=== PATIENT | female | born 2000 | race Caucasian/White ===

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

== ENCOUNTER 2020-10-28 04:01 | Inpatient (IN) ==
[2020-10-28] MEDS ORDERED: ONDANSETRON 4 MG/2 ML VIAL IV PRN (04:09)
[2020-10-28] MEDS ORDERED: MEPERIDINE 50 MG/1 ML VIAL IM PRN (04:09)
[2020-10-28] MEDS ORDERED: BUTORPHANOL 2 MG/ML VIAL IV PRN (04:09)
[2020-10-28 06:34] LABS: Basophils % 0.2 % (0.0-0.8); Eosinophils # 0.1 10*3/uL (0.0-0.87); Eosinophils % 1.1 % (0.00-10.9); Hematocrit 37.4 VOL% (35.7-47.0); Hemoglobin 12.4 GM/DL (12.0-16.0); Immature Granulocytes % 0.6 %; Immature Granulocytes Absolute 0.06 #; Lymphocytes # 2.6 10*3/uL (1.4-4.0); Lymphocytes % 27.6 % (21.3-54.2); Mean Corpuscular HGB Conc 33.2 GM/DL (32-36); Mean Corpuscular Volume 81.7 FL (87-102); Mean Platelet Volume 10.4 FL (9.6-12.0); Monocytes % 5.5 % (1.7-12.7); Platelet Count 186 T/CUMM (130-400); Red Blood Count 4.58 MC/CUMM (3.8-5.5); Red Cell Distribution Width 13.1 % (9.3-17.3); White Blood Count 9.3 T/CUMM (4-12)
[2020-10-28] MEDS: LACTATED RINGERS 1,000 ML IV SCH ×2 (06:50→10:03)
[2020-10-28 06:52] LABS: Albumin 2.6 G/DL (3.4-5.0); Bilirubin,Total 0.5 MG/DL (0.2-1.0); Calcium 8.7 MG/DL (8.5-10.1); Osmolality,Calculated 271.7 MOS/KG (273-304); Potassium 3.7 MMOL/L (3.5-5.1); Total Protein 7.1 G/DL (5.0-7.5)
[2020-10-28] MEDS ORDERED: AMPICILLIN INJ 2,000 MG in SODIUM CHLORIDE 0.9% 100 ML IV ONE (07:00)
[2020-10-28] MEDS: OXYTOCIN/LR 20 UNIT/1,000 ML BAG IV SCH ×2 (07:25→15:05)
[2020-10-28] MEDS ORDERED: LACTATED RINGERS 1,000 ML IV ONE (08:02)
[2020-10-28] MEDS ORDERED: PROMETHAZINE 25 MG/1 ML VIAL IM ONE (08:02)
[2020-10-28] MEDS ORDERED: NALOXONE 0.4 MG/ML VIAL IV PRN (08:02)
[2020-10-28] MEDS ORDERED: ONDANSETRON 4 MG/2 ML VIAL IV ONE (08:02)
[2020-10-28] MEDS ORDERED: ePHEDrine 50 MG/ML VIAL IV PRN (08:02)
[2020-10-28] MEDS ORDERED: diphenhydrAMINE 50 MG/1 ML VIAL IV PRN ×2 (08:02)
[2020-10-28] MEDS ORDERED: hydrOXYzine HCL 25 MG/1 ML VIAL IM PRN (08:02)
[2020-10-28] MEDS ORDERED: FAMOTIDINE 20 MG/2 ML VIAL IV ONE (08:02)
[2020-10-28] MEDS ORDERED: CITRIC ACID/SODIUM CITRATE 30 ML UDCUP PO ONE (08:02)
[2020-10-28] MEDS ORDERED: fentaNYL 2 MCG/ROPIV 0.2% EPID 100 ML EPIDURAL SCH (08:30)
[2020-10-28] MEDS ORDERED: AMPICILLIN INJ 1,000 MG in SODIUM CHLORIDE 0.9% 100 ML IV SCH (11:00)
[2020-10-28 11:36] LABS: Bacteria,Urine Occasional /HPF (Few); Bilirubin,Urine Negative (Negative); Blood, Urine Small mg/dL (Negative); Glucose,Urine (UA) Negative (Negative); Ketones,Urine 20 mg/dL (Negative); Mucus,Urine Few /LPF (Occasional); Nitrite,Urine Negative (Negative); Protein,Urine 30 MG/DL; RBC,Urine 24 /HPF (0-4); Squamous Epithelial Cell,Urine Occasional /HPF (0-10); Urine Appearance CLEAR (Clear); Urine Color Yellow (Yellow); WBC,Urine <1 /HPF (0-6)
[2020-10-28] MEDS ORDERED: miSOPROStoL 200 MCG TABLET ONE (11:46)
[2020-10-28] MEDS ORDERED: OXYTOCIN/LR 0 UNIT/0 ML BAG IV ONE (11:46)
[2020-10-28] MEDS ORDERED: METHYLERGONOVINE 0.2 MG/1 ML AMP ONE (11:46)
[2020-10-28] MEDS ORDERED: CARBOPROST TROMETHAMINE 250 MCG/ML AMP IM ONE (11:47)
[2020-10-28 12:41] LABS: Cord Arterial Blood HCO3 19.2 MMOL/L
[2020-10-28 12:46] LABS: Cord Venous Blood HCO3 20.6 MMOL/L; Cord Venous Blood PCO2 50.1 MMHG; Cord Venous Blood PO2 24.6
[2020-10-28] MEDS: IBUPROFEN 800 MG TABLET PO PRN (18:56)
[2020-10-28] MEDS: DOCUSATE SODIUM 100 MG CAPSULE PO SCH (21:06)
[2020-10-29] MEDS: IBUPROFEN 800 MG TABLET PO PRN ×2 (01:39→21:02)
[2020-10-29 06:32] LABS: Basophils % 0.2 % (0.0-0.8); Eosinophils # 0.1 10*3/uL (0.0-0.87); Eosinophils % 1.1 % (0.00-10.9); Hematocrit 35.4 VOL% (35.7-47.0); Hemoglobin 11.3 GM/DL (12.0-16.0); Immature Granulocytes % 0.6 %; Immature Granulocytes Absolute 0.06 #; Lymphocytes # 2.9 10*3/uL (1.4-4.0); Lymphocytes % 26.6 % (21.3-54.2); Mean Corpuscular HGB Conc 31.9 GM/DL (32-36); Mean Corpuscular Volume 84.5 FL (87-102); Mean Platelet Volume 10.9 FL (9.6-12.0); Monocytes % 5.9 % (1.7-12.7); Neutrophils % 65.6 % (38.7-73.9); Platelet Count 199 T/CUMM (130-400); Red Blood Count 4.19 MC/CUMM (3.8-5.5); Red Cell Distribution Width 13.2 % (9.3-17.3); White Blood Count 10.8 T/CUMM (4-12)
[2020-10-29] MEDS: oxyCODONE/ACETAMINOPHEN 5-325 MG TABLET PO PRN ×2 (08:43→16:59)
[2020-10-29] MEDS: DOCUSATE SODIUM 100 MG CAPSULE PO SCH ×2 (08:44→21:03)
[2020-10-29] MEDS ORDERED: INFLUENZA VIRUS VACCINE 0.5 ML SYRINGE IM ONE (09:00)
[2020-10-30 08:34] VITALS: BP 100/61
[2020-10-30] MEDS: DOCUSATE SODIUM 100 MG CAPSULE PO SCH (08:42)
== END 2020-10-30 12:55 | disposition home or self-care (01) | DRG 560 ==
LOC: N.LD 04:01 → N.OB 15:34
PROVIDERS: ADMIT Obstetrics & Gynecology; ATTEND Obstetrics & Gynecology

== ENCOUNTER 2022-03-25 01:41 | Inpatient (IN) ==
[2022-03-25] MEDS ORDERED: TRANEXAMIC ACID 1,000 MG in SODIUM CHLORIDE 0.9% 100 ML IV PRN (01:50)
[2022-03-25] MEDS ORDERED: METHYLERGONOVINE 0.2 MG/1 ML AMP IM PRN (01:50)
[2022-03-25] MEDS ORDERED: BUTORPHANOL 1 MG/ML VIAL IV PRN (01:50)
[2022-03-25] MEDS ORDERED: FAMOTIDINE 20 MG/2 ML VIAL IV PRN (01:50)
[2022-03-25] MEDS ORDERED: LACTATED RINGERS 500 ML IV PRN (01:50)
[2022-03-25] MEDS ORDERED: miSOPROStoL 200 MCG TABLET RECTAL PRN (01:50)
[2022-03-25] MEDS ORDERED: MEPERIDINE 50 MG/1 ML VIAL IV PRN ×2 (01:50)
[2022-03-25] MEDS ORDERED: CARBOPROST TROMETHAMINE 250 MCG/ML AMP IM PRN (01:50)
[2022-03-25] MEDS ORDERED: OXYTOCIN/LR 20 UNIT/1,000 ML BAG IV ONE ×2 (01:50→14:27)
[2022-03-25] MEDS ORDERED: ONDANSETRON 4 MG/2 ML VIAL IV PRN (01:50)
[2022-03-25] MEDS ORDERED: BUTORPHANOL 2 MG/ML VIAL IV PRN (01:50)
[2022-03-25] MEDS ORDERED: ACETAMINOPHEN 500 MG TABLET PO PRN (01:50)
[2022-03-25 02:20] LABS: Basophils % 0.2 % (0.0-0.8); Eosinophils # 0.3 10*3/uL (0.0-0.87); Eosinophils % 2.4 % (0.00-10.9); Hematocrit 35.1 VOL% (35.7-47.0); Hemoglobin 11.5 GM/DL (12.0-16.0); Immature Granulocytes % 0.7 %; Immature Granulocytes Absolute 0.08 #; Lymphocytes # 2.6 10*3/uL (1.4-4.0); Lymphocytes % 23.8 % (21.3-54.2); Mean Corpuscular HGB Conc 32.8 GM/DL (32-36); Mean Corpuscular Volume 78.9 FL (87-102); Mean Platelet Volume 11.2 FL (9.6-12.0); Monocytes # 0.6 10*3/uL (0.11-0.8); Monocytes % 5.4 % (1.7-12.7); Neutrophils % 67.5 % (38.7-73.9); Platelet Count 220 T/CUMM (130-400); Red Blood Count 4.45 MC/CUMM (3.8-5.5); Red Cell Distribution Width 14.6 % (9.3-17.3); White Blood Count 10.9 T/CUMM (4-12)
[2022-03-25 02:40] LABS: Alanine Aminotransferase 10 U/L (13-56); Albumin 2.7 G/DL (3.4-5.0); Alkaline Phosphatase 95 U/L (45-117); Aspartate Amino Transferase 9 U/L (0-37); Bilirubin,Total < 0.39 MG/DL (0.20-1.00); Blood Urea Nitrogen 8 MG/DL (7-18); Calcium 9.6 MG/DL (8.5-10.1); Carbon Dioxide 21 MMOL/L (21-32); Chloride 107 MMOL/L (98-107); Glucose 99 MG/DL (74-106); Osmolality,Calculated 270.8 MOS/KG (273-304); Potassium 3.7 MMOL/L (3.5-5.1); Sodium 137 MMOL/L (136-145)
[2022-03-25] MEDS ORDERED: OXYTOCIN/LR 20 UNIT/1,000 ML BAG IV SCH (03:00)
[2022-03-25] MEDS: LACTATED RINGERS 1,000 ML IV SCH ×2 (03:20→07:47)
[2022-03-25] MEDS ORDERED: ePHEDrine 50 MG/ML VIAL IV PRN (06:52)
[2022-03-25] MEDS ORDERED: diphenhydrAMINE 50 MG/1 ML VIAL IV PRN ×2 (06:52)
[2022-03-25] MEDS ORDERED: PROMETHAZINE 25 MG/1 ML VIAL IM ONE (06:52)
[2022-03-25] MEDS ORDERED: ONDANSETRON 4 MG/2 ML VIAL IV ONE (06:52)
[2022-03-25] MEDS ORDERED: hydrOXYzine HCL 25 MG/1 ML VIAL IM PRN (06:52)
[2022-03-25] MEDS ORDERED: LACTATED RINGERS 1,000 ML IV ONE (06:52)
[2022-03-25] MEDS ORDERED: FAMOTIDINE 20 MG/2 ML VIAL IV ONE (06:52)
[2022-03-25] MEDS ORDERED: NALOXONE 0.4 MG/ML VIAL IV PRN (06:52)
[2022-03-25] MEDS ORDERED: LACTATED RINGERS 500 ML IV ONE (06:52)
[2022-03-25] MEDS ORDERED: CITRIC ACID/SODIUM CITRATE 30 ML UDCUP PO ONE (06:52)
[2022-03-25] MEDS ORDERED: fentaNYL 2 MCG/ROPIV 0.2% EPID 100 ML EPIDURAL SCH (07:00)
[2022-03-25 09:00] LABS: Bacteria,Urine Occasional /HPF (Few); Mucus,Urine Occasional /LPF (Occasional); RBC,Urine <1 /HPF (0-4); Squamous Epithelial Cell,Urine Occasional /HPF (0-10)
[2022-03-25 09:01] LABS: Bilirubin,Urine Negative (Negative); Blood, Urine Negative (Negative); Glucose,Urine (UA) Negative (Negative); Ketones,Urine Negative (Negative); Nitrite,Urine Negative (Negative); Protein,Urine Negative (Negative); Urine Appearance Clear (Clear); Urine Color Yellow (Yellow); Urine pH 6.5 (4.5-8.0)
[2022-03-25] MEDS ORDERED: SODIUM CHLORIDE 0.9% 0 ML IV ONE (10:16)
[2022-03-25] MEDS ORDERED: miSOPROStoL 200 MCG TABLET ONE (10:16)
[2022-03-25] MEDS ORDERED: TRANEXAMIC ACID 1,000 MG/10 ML VIAL ONE (10:16)
[2022-03-25] MEDS ORDERED: METHYLERGONOVINE 0.2 MG/1 ML AMP ONE (10:17)
[2022-03-25] MEDS ORDERED: CARBOPROST TROMETHAMINE 250 MCG/ML AMP IM ONE (10:17)
[2022-03-25 11:09] LABS: Cord Venous Blood HCO3 23.5 MMOL/L; Cord Venous Blood PO2 27.6
[2022-03-25] MEDS ORDERED: BISACODYL 10 MG SUPP RECTAL PRN (14:27)
[2022-03-25] MEDS ORDERED: ACETAMINOPHEN 325 MG TABLET PO PRN (14:27)
[2022-03-25] MEDS ORDERED: oxyCODONE/ACETAMINOPHEN 5-325 MG TABLET PO PRN ×2 (14:27)
[2022-03-25] MEDS ORDERED: WITCH HAZEL PADS 100/JAR TOP PRN (14:27)
[2022-03-25] MEDS ORDERED: LANOLIN 50% CREAM 0.3 OZ TUBE TOP PRN (14:27)
[2022-03-25] MEDS ORDERED: BENZOCAINE 20%/MENTHOL 0.5% SPRAY 56 GM CAN TOP PRN (14:27)
[2022-03-25] MEDS ORDERED: HYDROCORTISONE 2.5% RECTAL CREAM 30 GM TUBE TOP PRN (14:27)
[2022-03-25] MEDS ORDERED: RHO(D) IMMUNE GLOBULIN 300 MCG SYRINGE IM ONE (15:00)
[2022-03-25] MEDS ORDERED: MEASLES/MUMPS/RUBELLA VACCINE 0.5 ML VIAL SUBCUT ONE (15:00)
[2022-03-25] MEDS ORDERED: DIPH/TET/ACEL PERT BOOSTER VACCINE 0.5 ML VIAL IM ONE (15:00)
[2022-03-25] MEDS: IBUPROFEN 800 MG TABLET PO PRN (18:50)
[2022-03-25] MEDS: DOCUSATE SODIUM 100 MG CAPSULE PO SCH (21:31)
[2022-03-26 06:21] LABS: Basophils % 0.2 % (0.0-0.8); Eosinophils # 0.3 10*3/uL (0.0-0.87); Eosinophils % 2.5 % (0.00-10.9); Hematocrit 28.8 VOL% (35.7-47.0); Hemoglobin 9.1 GM/DL (12.0-16.0); Immature Granulocytes % 0.7 %; Immature Granulocytes Absolute 0.07 #; Lymphocytes # 2.5 10*3/uL (1.4-4.0); Lymphocytes % 22.9 % (21.3-54.2); Mean Corpuscular HGB Conc 31.6 GM/DL (32-36); Mean Corpuscular Volume 81.4 FL (87-102); Monocytes # 0.7 10*3/uL (0.11-0.8); Monocytes % 6.5 % (1.7-12.7); Neutrophils % 67.2 % (38.7-73.9); Platelet Count 156 T/CUMM (130-400); Red Blood Count 3.54 MC/CUMM (3.8-5.5); Red Cell Distribution Width 14.5 % (9.3-17.3); White Blood Count 10.7 T/CUMM (4-12)
[2022-03-26] MEDS: IBUPROFEN 800 MG TABLET PO PRN ×2 (08:02→15:58)
[2022-03-26] MEDS: DOCUSATE SODIUM 100 MG CAPSULE PO SCH ×2 (08:02→21:28)
[2022-03-27 08:14] VITALS: BP 109/57
[2022-03-27] MEDS: DOCUSATE SODIUM 100 MG CAPSULE PO SCH (09:59)
== END 2022-03-27 12:25 | disposition home or self-care (01) | DRG 560 ==
LOC: N.LDOUT 01:41 → N.LD 01:42 → N.OB 14:03
PROVIDERS: ADMIT Obstetrics & Gynecology; ATTEND Obstetrics & Gynecology